=== PATIENT | male | born 1950 | race Caucasian/White ===

== ENCOUNTER 2023-06-16 13:02 | Emergency (ER) | payer OTHER ==
[~2023-06-16] VITALS: Ht 167.6 cm; Wt 72.6 kg
[2023-06-16 13:05] VITALS: BP_SYST 178; PULSE 60; RESP 18; TEMP 97; O2SAT 97
[2023-06-16] MEDS ORDERED: IBUP-1969 PO (15:04)
[2023-06-16] MEDS ORDERED: HYDR-3917 PO (15:04)
[2023-06-16 15:27] VITALS: BP_SYST 165; PULSE 62; RESP 20; TEMP 97; O2SAT 98
[2023-06-16] MEDS: IBUPROFEN 800 MG TABLET PO ONE (15:32)
[2023-06-16] MEDS: BACITRACIN 1 GM OINT TP ONE (15:32)
[2023-06-16] MEDS: HYDROcodone/ACETAMIN 5-325 MG TAB (NORCO/ VICODIN) PO ONE (15:33)
== END 2023-06-16 15:25 | disposition home or self-care (01) ==
LOC: SED 13:02
DX: S01.111A Laceration without foreign body of right eyelid and periocular area, initial encounter (principal); S43.491A Other sprain of right shoulder joint, initial encounter; Z79.899 Other long term (current) drug therapy; W01.0XXA Fall on same level from slipping, tripping and stumbling without subsequent striking against object, initial encounter; Y93.89 Activity, other specified; Y92.89 Other specified places as the place of occurrence of the external cause; Y99.8 Other external cause status
CPT/HCPCS: 73030; 99283